=== PATIENT | female | born 1930 | race Two or more races ===

== ENCOUNTER 2020-06-06 11:38 | Inpatient (IN) | payer MEDICARE, OTHER ==
[2020-06-06] VITALS (14 sets, daily range): BP systolic 82–139; BP diastolic 38–58
[~2020-06-06] VITALS: Ht 172.7 cm; Wt 64.5 kg
[~2020-06-06 11:38] MED LIST: ALBU0.084 NEB; AMLO-489 PO; AZIT250T8 PO; DEXT1SYP9 PO; FLUT110A INH; HYDR25TA4 PO; Ipratropium Bromide NEB; LEVO750T64 PO; LOP2C; LOS50T PO
[2020-06-06 13:14] LABS: Basophils # (auto) 0.1 10 ^3/uL (0-0.2); Basophils % (auto) 1.1 % (0.0-2.0); Eosinophils # (auto) 0.2 10 ^3/uL (0-0.8); Eosinophils % (auto) 3.2 % (0.0-7.0); Hematocrit 40.2 % (36.0-46.0); Hemoglobin 13.1 g/dL (12.2-16.2); Lymphocytes # (auto) 0.5 10 ^3/uL (0.4-5.4); Lymphocytes % (auto) 7.4 % (10.0-50.0); Mean Corpuscular Hemoglobin 25.3 pg (28.0-32.0); Mean Corpuscular Hgb Conc. 32.6 g/dL (32.0-36.0); Mean Corpuscular Volume 77.4 fL (80.0-100.0); Monocytes # (auto) 0.4 10 ^3/uL (0-1.3); Monocytes % (auto) 6.3 % (0.0-12.0); Neutrophils # (auto) 5.4 10 ^3/uL (1.6-8.6); Nucleated Red Blood Cells % 0.1 %; Platelet Count (auto) 517 10^3/uL (140-450); Red Blood Cells 5.19 10^6/uL (4.0-5.20); Red Cell Distribution Width 16.8 % (11.8-14.3); White Blood Cell 6.6 10^3/uL (4.4-10.8)
[2020-06-06 13:19] LABS: Urine Bacteria FEW /hpf (None Seen); Urine Blood Negative /uL (Negative); Urine Mucus FEW (None Seen); Urine Specific Gravity 1.019 (1.001-1.035); Urine WBC 31 /hpf (0 - 5)
[2020-06-06 13:28] LABS: INR 1.03 (0.9-1.15); Partial Thromboplastin Time 25.1 sec (23.0-31.2)
[2020-06-06 13:31] LABS: Alcohol, Urine < 3.0 mg/dL (0-10); Amphetamine Screen, Urine NEGATIVE (NEGATIVE); Barbiturate Scree,Urine NEGATIVE (NEGATIVE); Benzodiazephine Screen, Urine NEGATIVE (NEGATIVE); Cannabinoid Screen, Urine NEGATIVE (NEGATIVE); Cocaine Screen, Urine NEGATIVE (NEGATIVE); Opiate Scree,Urine NEGATIVE (NEGATIVE); Phencyclidine Screen, Urine NEGATIVE (NEGATIVE)
[2020-06-06 13:31] LABS: Albumin 2.5 g/dL (3.4-5.0); Anion Gap 6 (5-15); Blood Urea Nitrogen 14 mg/dL (7-18); Calcium 8.6 mg/dL (8.5-10.1); Carbon Dioxide 32 mmol/L (21-32); Chloride 88 mmol/L (98-107); Glucose 98 mg/dL (74-106); Potassium 3.7 mmol/L (3.5-5.1); Sodium 126 mmol/L (136-145)
[2020-06-06 13:40] LABS: Alanine Aminotransferase 13 U/L (13-56); Alkaline Phosphatase 142 U/L (45-117); Aspartate Aminotransferase 19 U/L (15-37); BUN/Creatinine Ratio 26.9; Bilirubin, Total 0.3 mg/dL (0.2-1.0); GFR African American 143 mL/min; GFR Non-African American 118 mL/min
[2020-06-06 13:41] LABS: CRP High Sensitivity 4.88 mg/dL (< 0.3); Lactate Dehydrogenase 299 U/L (84-246); Total Protein 7.6 g/dL (6.4-8.2)
[2020-06-06] MEDS ORDERED: cefTRIAXone 1GM/50ML D5W 50 ML IV ONE (13:45)
[2020-06-06] MEDS ORDERED: AZITHROMYCIN 500MG/ 250ML 250 ML IV ONE (13:45)
[2020-06-06] MEDS ORDERED: methylPREDNISolone SOD SUCC 125 MG/2 ML VL IV ONE (13:45)
[2020-06-06] MEDS ORDERED: ALBUTEROL SULF 2.5 MG/0.5ML(0.5%) NEB SOLN HHN ONE (13:45)
[2020-06-06] MEDS ORDERED: ENOXAPARIN SOD 100 MG/1 ML SYRINGE SC ONE (13:45)
[2020-06-06] MEDS ORDERED: IPRATROPIUM BROM 0.5 MG/2.5ML INH SOL HHN ONE (13:45)
[2020-06-06] MEDS ORDERED: ALBUTEROL SULF HFA 90MCG INH 200DOSE IN PRN (14:15)
[2020-06-06] MEDS ORDERED: DexAMETHasone SOD PHOS 10MG/1ML VIAL INJ IV ONE (14:15)
[2020-06-06] MEDS ORDERED: NITROGLYCERIN 0.4 MG SL TAB SL PRN (14:15)
[2020-06-06] MEDS ORDERED: CHOLECALCIFEROL (VITD3) 2,000 UNIT CAP/TAB PO ONE ×2 (14:15→14:45)
[2020-06-06] MEDS ORDERED: ZINC SULFATE 220mg CAP or TAB PO ONE ×2 (14:15→14:45)
[2020-06-06] MEDS ORDERED: ENOXAPARIN SOD 40 MG/0.4 ML SYRINGE SC ONE (14:15)
[2020-06-06] MEDS ORDERED: MORPHINE SULF INJ 2 MG/ML SYRINGE 1ML IV PRN (14:15)
[2020-06-06] MEDS ORDERED: ASCORBIC ACID 1,000 MG TAB PO ONE ×2 (14:15→14:45)
[2020-06-06] MEDS ORDERED: ONDANSETRON HCL 4 MG/2 ML VIAL IV PRN (14:30)
[2020-06-06] MEDS ORDERED: FUROSEMIDE 20 MG/2 ML VIAL IV ONE (14:30)
[2020-06-06] MEDS ORDERED: ACETAMINOPHEN 500 MG TAB PO PRN (14:30)
[2020-06-06] MEDS ORDERED: VANCOMYCIN 1GM/250ML 250 ML IV ONE (14:30)
[2020-06-06] MEDS ORDERED: VANCOMYCIN PER PHARMACY 0 MG IV SCH (14:30)
[2020-06-06] MEDS ORDERED: POTASSIUM EFFERVESENT TAB 25 MEQ PO ONE (14:30)
[2020-06-06] MEDS ORDERED: ALBUTEROL SULF 2.5 MG/0.5ML(0.5%) NEB SOLN NEB PRN (14:30)
[2020-06-06] MEDS ORDERED: LACTULOSE 20Gm/30ML SOLN PO PRN ×2 (14:30)
[2020-06-06] MEDS ORDERED: ENALAPRIL MALEATE 2.5 MG TAB PO ONE (14:45)
[2020-06-06] MEDS ORDERED: NITROGLYCERIN 0.2MG/HR TOPICAL PATCH TD ONE (14:45)
[2020-06-06] MEDS ORDERED: ENOXAPARIN SOD 80 MG/0.8ML SYRINGE SC ONE (14:45)
[2020-06-06] MEDS ORDERED: FAMOTIDINE 20 MG TAB PO ONE (14:45)
[2020-06-06] MEDS ORDERED: LACTULOSE 20Gm/30ML SOLN PO ONE (14:45)
[2020-06-06] MEDS: DexAMETHasone SOD PHOS 10MG/1ML VIAL INJ IV SCH ×2 (16:00→22:00)
[2020-06-06] MEDS ORDERED: ASPI1TAB19 PO (17:46)
[2020-06-06] MEDS: PIPERACILLIN-TAZOB 3.375GM 100 ML IV SCH (18:00)
[2020-06-06] MEDS: DOPamine 1600MCG/ML D5W 250 ML IV SCH (19:15)
[2020-06-06] MEDS ORDERED: BUDESONIDE (INHALATION) 180 MCG IH IN SCH (22:00)
[2020-06-06] MEDS: ENOXAPARIN SOD 80 MG/0.8ML SYRINGE SC SCH (22:00)
[2020-06-06] MEDS ORDERED: FLORASTOR (S. BOULARDII) 250 MG CAP PO SCH (22:00)
[2020-06-06] MEDS ORDERED: ENOXAPARIN SOD 40 MG/0.4 ML SYRINGE SC SCH (22:00)
[2020-06-06] MEDS ORDERED: FAMOTIDINE 20 MG TAB PO SCH (22:00)
[2020-06-07] VITALS (70 sets, daily range): BP systolic 20–156; BP diastolic 31–71
[2020-06-07] MEDS ORDERED: ALBUMIN 25% 50 ML IV ONE ×2 (04:27→04:30)
[2020-06-07] MEDS: NOREPINEPHRINE 8 MG/250ML KIT 250 ML IV SCH ×3 (04:30→15:15)
[2020-06-07 05:26] LABS: Basophils # (auto) 0 10 ^3/uL (0-0.2); Eosinophils # (auto) 0 10 ^3/uL (0-0.8); Lymphocytes # (auto) 0.3 10 ^3/uL (0.4-5.4); Monocytes # (auto) 0.1 10 ^3/uL (0-1.3); Platelet Count (auto) 571 10^3/uL (140-450)
[2020-06-07 05:28] LABS: Basophils % (auto) 0.2 % (0.0-2.0); Eosinophils % (auto) 0.1 % (0.0-7.0); Hematocrit 43.4 % (36.0-46.0); Lymphocytes % (auto) 6.8 % (10.0-50.0); Mean Corpuscular Hemoglobin 24.7 pg (28.0-32.0); Mean Corpuscular Hgb Conc. 32.1 g/dL (32.0-36.0); Monocytes % (auto) 1.4 % (0.0-12.0); Neutrophils # (auto) 4.5 10 ^3/uL (1.6-8.6); Neutrophils % (auto) 91.5 % (37.0-80.0); Red Blood Cells 5.65 10^6/uL (4.0-5.20); Red Cell Distribution Width 16.6 % (11.8-14.3)
[2020-06-07 05:44] LABS: Alanine Aminotransferase 16 U/L (13-56); Albumin 3.2 g/dL (3.4-5.0); Anion Gap 4 (5-15); Blood Urea Nitrogen 16 mg/dL (7-18); Calcium 9.1 mg/dL (8.5-10.1); Carbon Dioxide 36 mmol/L (21-32); Chloride 88 mmol/L (98-107); Glucose 171 mg/dL (74-106); Sodium 128 mmol/L (136-145)
[2020-06-07] MEDS: DexAMETHasone SOD PHOS 10MG/1ML VIAL INJ IV SCH (05:46)
[2020-06-07 05:51] LABS: Alkaline Phosphatase 136 U/L (45-117); Aspartate Aminotransferase 15 U/L (15-37); BUN/Creatinine Ratio 27.6; Bilirubin, Total 0.5 mg/dL (0.2-1.0); GFR African American 126 mL/min; GFR Non-African American 104 mL/min; Total Protein 8.5 g/dL (6.4-8.2)
[2020-06-07] MEDS: PIPERACILLIN-TAZOB 3.375GM 100 ML IV SCH ×5 (08:00→23:26)
[2020-06-07] MEDS: PHENYLEPHRINE INJ 40 MG in SODIUM CHL 0.9% 246 ML IV SCH (08:45)
[2020-06-07] MEDS ORDERED: LACTULOSE 20Gm/30ML SOLN PO SCH (10:00)
[2020-06-07] MEDS ORDERED: NITROGLYCERIN 0.2MG/HR TOPICAL PATCH TD SCH (10:00)
[2020-06-07] MEDS ORDERED: ZINC SULFATE 220mg CAP or TAB PO SCH (10:00)
[2020-06-07] MEDS ORDERED: CHOLECALCIFEROL (VITD3) 2,000 UNIT CAP/TAB PO SCH (10:00)
[2020-06-07] MEDS ORDERED: FAMOTIDINE 20 MG TAB PO SCH (10:00)
[2020-06-07] MEDS ORDERED: AZITHROMYCIN 500MG/ 250ML 250 ML IV SCH (10:00)
[2020-06-07] MEDS ORDERED: ASCORBIC ACID 1,000 MG TAB PO SCH (10:00)
[2020-06-07] MEDS ORDERED: ENALAPRIL MALEATE 2.5 MG TAB PO SCH (10:00)
[2020-06-07] MEDS ORDERED: DexAMETHasone SOD PHOS 10MG/1ML VIAL INJ IV SCH (10:00)
[2020-06-07] MEDS ORDERED: FAMOTIDINE (10MG/ML) 2ML VL IV ONE (10:30)
[2020-06-07] MEDS: ENOXAPARIN SOD 80 MG/0.8ML SYRINGE SC SCH ×2 (10:30→22:00)
[2020-06-07] MEDS ORDERED: LORazepam 2MG/ML-1ML VIAL IV ONE (13:30)
[2020-06-07] MEDS ORDERED: FLEET ENEMA(ADULT) 135 ML PR ONE (13:45)
[2020-06-07] MEDS: ALBUTEROL SULF 2.5 MG/0.5ML(0.5%) NEB SOLN NEB SCH ×3 (14:16→23:40)
[2020-06-07] MEDS: IPRATROPIUM BROM 0.5 MG/2.5ML INH SOL NEB SCH ×3 (14:16→23:40)
[2020-06-07] MEDS: DOPamine 1600MCG/ML D5W 250 ML IV SCH (16:13)
[2020-06-07] MEDS ORDERED: FLEET MINERAL OIL ENEMA 133 ML PR ONE (18:15)
[2020-06-07] MEDS: BUDESONIDE (INHALATION) 0.5 MG/2 ML NEB NEB SCH (18:46)
[2020-06-08] VITALS (92 sets, daily range): BP systolic 91–152; BP diastolic 34–74
[2020-06-08] MEDS: IPRATROPIUM BROM 0.5 MG/2.5ML INH SOL NEB SCH ×6 (04:19→22:49)
[2020-06-08] MEDS: ALBUTEROL SULF 2.5 MG/0.5ML(0.5%) NEB SOLN NEB SCH ×6 (04:19→22:48)
[2020-06-08] MEDS: PIPERACILLIN-TAZOB 3.375GM 100 ML IV SCH ×3 (06:38→17:53)
[2020-06-08] MEDS: BUDESONIDE (INHALATION) 0.5 MG/2 ML NEB NEB SCH ×2 (09:26→18:36)
[2020-06-08] MEDS: VANCOMYCIN 1GM/250ML 250 ML IV SCH (10:30)
[2020-06-08] MEDS: FAMOTIDINE (10MG/ML) 2ML VL IV SCH (10:31)
[2020-06-08] MEDS: ENOXAPARIN SOD 80 MG/0.8ML SYRINGE SC SCH ×2 (10:31→22:01)
[2020-06-08] MEDS: PHENYLEPHRINE INJ 40 MG in SODIUM CHL 0.9% 246 ML IV SCH ×2 (12:00→17:54)
[2020-06-08] MEDS: AZITHROMYCIN 500MG/ 250ML 250 ML IV SCH (12:02)
[2020-06-08] MEDS: DOPamine 1600MCG/ML D5W 250 ML IV SCH (12:25)
[2020-06-09] VITALS (76 sets, daily range): BP systolic 88–151; BP diastolic 35–69
[2020-06-09] MEDS: ALBUTEROL SULF 2.5 MG/0.5ML(0.5%) NEB SOLN NEB SCH ×6 (02:24→22:18)
[2020-06-09] MEDS: IPRATROPIUM BROM 0.5 MG/2.5ML INH SOL NEB SCH ×6 (02:24→22:18)
[2020-06-09] MEDS: NOREPINEPHRINE 8 MG/250ML KIT 250 ML IV SCH (04:08)
[2020-06-09] MEDS: PIPERACILLIN-TAZOB 3.375GM 100 ML IV SCH ×5 (05:00→23:57)
[2020-06-09] MEDS: BUDESONIDE (INHALATION) 0.5 MG/2 ML NEB NEB SCH ×2 (06:26→18:24)
[2020-06-09 06:35] LABS: Eosinophils # (auto) 0.2 10 ^3/uL (0-0.8); Mean Corpuscular Volume 77.7 fL (80.0-100.0); Monocytes # (auto) 0.5 10 ^3/uL (0-1.3); Neutrophils # (auto) 4.6 10 ^3/uL (1.6-8.6)
[2020-06-09 06:37] LABS: Basophils # (auto) 0.1 10 ^3/uL (0-0.2); Basophils % (auto) 0.9 % (0.0-2.0); Eosinophils % (auto) 3.5 % (0.0-7.0); Hematocrit 35.8 % (36.0-46.0); Hemoglobin 11.4 g/dL (12.2-16.2); Lymphocytes # (auto) 0.9 10 ^3/uL (0.4-5.4); Lymphocytes % (auto) 13.8 % (10.0-50.0); Mean Corpuscular Hemoglobin 24.8 pg (28.0-32.0); Mean Corpuscular Hgb Conc. 31.9 g/dL (32.0-36.0); Monocytes % (auto) 8.7 % (0.0-12.0); Neutrophils % (auto) 73.1 % (37.0-80.0); Nucleated Red Blood Cells % 0.2 %; Platelet Count (auto) 422 10^3/uL (140-450); Red Blood Cells 4.61 10^6/uL (4.0-5.20); Red Cell Distribution Width 16.8 % (11.8-14.3); White Blood Cell 6.3 10^3/uL (4.4-10.8)
[2020-06-09 06:51] LABS: Calcium 8.1 mg/dL (8.5-10.1); Potassium 3.2 mmol/L (3.5-5.1)
[2020-06-09 06:54] LABS: BUN/Creatinine Ratio 24.4
[2020-06-09] MEDS ORDERED: POTASSIUM CHL 20MEQ/100ML 100 ML IV ONE (09:30)
[2020-06-09] MEDS ORDERED: ALBUMIN 25% 100 ML IV ONE (09:30)
[2020-06-09] MEDS: DOPamine 1600MCG/ML D5W 250 ML IV SCH (10:09)
[2020-06-09] MEDS: VANCOMYCIN 1GM/250ML 250 ML IV SCH (10:26)
[2020-06-09] MEDS: ENOXAPARIN SOD 80 MG/0.8ML SYRINGE SC SCH ×2 (10:27→21:30)
[2020-06-09] MEDS: FAMOTIDINE (10MG/ML) 2ML VL IV SCH (10:27)
[2020-06-09] MEDS: PHENYLEPHRINE INJ 40 MG in SODIUM CHL 0.9% 246 ML IV SCH (10:45)
[2020-06-09] MEDS: AZITHROMYCIN 500MG/ 250ML 250 ML IV SCH (12:07)
[2020-06-09] MEDS ORDERED: FUROSEMIDE 20 MG/2 ML VIAL IV ONE (12:15)
[2020-06-09] MEDS ORDERED: LACTULOSE 20Gm/30ML SOLN PO ONE (15:00)
[2020-06-10] VITALS (19 sets, daily range): BP systolic 85–162; BP diastolic 37–75
[2020-06-10] MEDS: traMADol HCL 50 MG TAB PO PRN ×2 (02:06→16:37)
[2020-06-10] MEDS: ALBUTEROL SULF 2.5 MG/0.5ML(0.5%) NEB SOLN NEB SCH ×6 (02:40→22:46)
[2020-06-10] MEDS: IPRATROPIUM BROM 0.5 MG/2.5ML INH SOL NEB SCH ×6 (02:40→22:46)
[2020-06-10] MEDS: NOREPINEPHRINE 8 MG/250ML KIT 250 ML IV SCH (04:30)
[2020-06-10] MEDS: BUDESONIDE (INHALATION) 0.5 MG/2 ML NEB NEB SCH ×2 (06:37→18:39)
[2020-06-10] MEDS: PIPERACILLIN-TAZOB 3.375GM 100 ML IV SCH ×3 (07:05→16:37)
[2020-06-10] MEDS: DOPamine 1600MCG/ML D5W 250 ML IV SCH (07:07)
[2020-06-10] MEDS ORDERED: FUROSEMIDE 20 MG/2 ML VIAL IV ONE (09:30)
[2020-06-10] MEDS: APIXABAN 5 MG TAB PO SCH ×2 (10:00→22:10)
[2020-06-10] MEDS: FAMOTIDINE (10MG/ML) 2ML VL IV SCH (10:00)
[2020-06-10 10:06] LABS: Potassium 3.5 mmol/L (3.5-5.1)
[2020-06-10] MEDS: AZITHROMYCIN 500MG/ 250ML 250 ML IV SCH (10:40)
[2020-06-10] MEDS: Ensure HIGH Protein Chocolate 8oz Bottle PO SCH ×2 (12:00→18:51)
[2020-06-10] MEDS ORDERED: Glucerna Carbsteady SHAKE Vanilla 8oz PO SCH (12:00)
[2020-06-11] MEDS ORDERED: VANCOMYCIN 1GM/250ML 250 ML IV SCH
[2020-06-11] MEDS: PIPERACILLIN-TAZOB 3.375GM 100 ML IV SCH ×2 (00:28→05:39)
[2020-06-11] MEDS: IPRATROPIUM BROM 0.5 MG/2.5ML INH SOL NEB SCH ×5 (02:23→19:27)
[2020-06-11] MEDS: ALBUTEROL SULF 2.5 MG/0.5ML(0.5%) NEB SOLN NEB SCH ×5 (02:23→19:28)
[2020-06-11 05:40] VITALS: BP 112/46
[2020-06-11 05:46] LABS: Basophils # (auto) 0 10 ^3/uL (0-0.2); Basophils % (auto) 0.4 % (0.0-2.0); Eosinophils # (auto) 0.6 10 ^3/uL (0-0.8); Eosinophils % (auto) 10.5 % (0.0-7.0); Hematocrit 34.2 % (36.0-46.0); Hemoglobin 10.9 g/dL (12.2-16.2); Lymphocytes # (auto) 0.9 10 ^3/uL (0.4-5.4); Lymphocytes % (auto) 15.6 % (10.0-50.0); Mean Corpuscular Hemoglobin 24.7 pg (28.0-32.0); Mean Corpuscular Volume 77.1 fL (80.0-100.0); Monocytes # (auto) 0.4 10 ^3/uL (0-1.3); Monocytes % (auto) 7.6 % (0.0-12.0); Neutrophils # (auto) 3.9 10 ^3/uL (1.6-8.6); Neutrophils % (auto) 65.9 % (37.0-80.0); Platelet Count (auto) 312 10^3/uL (140-450); Red Blood Cells 4.43 10^6/uL (4.0-5.20); Red Cell Distribution Width 16.8 % (11.8-14.3); White Blood Cell 5.9 10^3/uL (4.4-10.8)
[2020-06-11 06:17] LABS: Albumin 2.5 g/dL (3.4-5.0); BUN/Creatinine Ratio 30.8; Bilirubin, Total 0.6 mg/dL (0.2-1.0); Calcium 8.2 mg/dL (8.5-10.1); Potassium 3.1 mmol/L (3.5-5.1); Total Protein 5.7 g/dL (6.4-8.2)
[2020-06-11] MEDS: AZITHROMYCIN 500MG/ 250ML 250 ML IV SCH (08:45)
[2020-06-11] MEDS: APIXABAN 5 MG TAB PO SCH (08:46)
[2020-06-11] MEDS: Ensure HIGH Protein Chocolate 8oz Bottle PO SCH ×3 (08:46→18:22)
[2020-06-11] MEDS: traMADol HCL 50 MG TAB PO PRN (08:46)
[2020-06-11] MEDS: FAMOTIDINE (10MG/ML) 2ML VL IV SCH (08:46)
[2020-06-11 09:00] VITALS: BP 117/52
[2020-06-11] MEDS ORDERED: cefTRIAXone 1GM/50ML D5W 50 ML IV SCH (09:00)
[2020-06-11] MEDS ORDERED: POTASSIUM CHL 20 Meq TABLET PO ONE (09:30)
[2020-06-11] MEDS: BUDESONIDE (INHALATION) 0.5 MG/2 ML NEB NEB SCH (09:48)
[2020-06-11] MEDS ORDERED: AZIT250T8 PO (12:58)
[2020-06-11] MEDS ORDERED: POTA10TA51 PO (12:58)
[2020-06-11] MEDS ORDERED: AMOX-277 PO (12:58)
[2020-06-11] MEDS ORDERED: APIX5TAB PO (12:58)
[2020-06-11 13:00] VITALS: BP 97/53
[2020-06-11 13:53] VITALS: BP 117/52
[2020-06-11 20:05] VITALS: BP 120/48
[2020-06-17] MEDS ORDERED: APIXABAN 5 MG TAB PO SCH (10:00)
== END 2020-06-11 19:55 | disposition hospice, home (50) | DRG 720 ==
LOC: EDUNIT# 11:38 → EDBD 11:38 → ER 11:38 → OVERFLOW 11:39 → DOU IN ICU 15:50 → TELE-WESTW 06-10 11:24
PROVIDERS: ADMIT Internal Medicine; ATTEND Internal Medicine
PROC: 5A09357 Assistance with Respiratory Ventilation, Less than 24 Consecutive Hours, Continuous Positive Airway Pressure (ICD-10-PCS; principal; 2020-06-06)
DX: A41.9 Sepsis, unspecified organism (principal); R65.21 Severe sepsis with septic shock; J15.6 Pneumonia due to other Gram-negative bacteria; J90 Pleural effusion, not elsewhere classified; E87.1 Hypo-osmolality and hyponatremia; E46 Unspecified protein-calorie malnutrition; F32.9 Major depressive disorder, single episode, unspecified; F03.90 Unspecified dementia, unspecified severity, without behavioral disturbance, psychotic disturbance, mood disturbance, and anxiety; E66.3 Overweight; J44.0 Chronic obstructive pulmonary disease with (acute) lower respiratory infection; J44.1 Chronic obstructive pulmonary disease with (acute) exacerbation; Z20.822 Contact with and (suspected) exposure to COVID-19; J96.21 Acute and chronic respiratory failure with hypoxia; J96.22 Acute and chronic respiratory failure with hypercapnia; E87.2 Acidosis; K59.00 Constipation, unspecified; I10 Essential (primary) hypertension; N39.0 Urinary tract infection, site not specified; I82.402 Acute embolism and thrombosis of unspecified deep veins of left lower extremity; Z68.21 Body mass index [BMI] 21.0-21.9, adult; Z90.49 Acquired absence of other specified parts of digestive tract; Z82.61 Family history of arthritis; Z82.5 Family history of asthma and other chronic lower respiratory diseases; Z82.49 Family history of ischemic heart disease and other diseases of the circulatory system; Z82.62 Family history of osteoporosis; Z80.42 Family history of malignant neoplasm of prostate; Z80.3 Family history of malignant neoplasm of breast; Z80.41 Family history of malignant neoplasm of ovary; Z80.1 Family history of malignant neoplasm of trachea, bronchus and lung; Z82.3 Family history of stroke; I26.99 Other pulmonary embolism without acute cor pulmonale; Z80.8 Family history of malignant neoplasm of other organs or systems; Z81.8 Family history of other mental and behavioral disorders; Z82.0 Family history of epilepsy and other diseases of the nervous system; Z83.3 Family history of diabetes mellitus; E87.6 Hypokalemia
CPT/HCPCS: 36415; 36600; 70450; 71045; 80048; 80053; 80202; 80307; 81001; 82550; 82565; 82728; 82805; 83605; 83615; 83735; 83880; 84132; 84295; 84443; 84484; 85025; 85610; 85730; 86141; 87040; 87081; 87426; 92610; 93005; 93306; 93971; 94640; 94660; 96365; 96367; 96372; 96375; 97110; 97163; 97530; 99291; G0378; J0696; J1100; J2543; J3480; J3490; P9047